=== PATIENT | female | born 1980 | race Caucasian/White ===

== ENCOUNTER 2018-11-02 17:41 | Emergency (ER) | payer OTHER ==
[~2018-11-02] VITALS: Ht 165.1 cm; Wt 117.5 kg
[2018-11-02] MEDS ORDERED: PROZ10CA7 PO (17:56)
[2018-11-02] MEDS ORDERED: KETOROLAC 60 MG/2 ML VIAL (J1885) IM ONE (18:00)
[2018-11-02] MEDS ORDERED: CYCLOBENZAPRINE 10 MG TAB PO ONE (18:00)
--- NOTE | 2018-11-02 18:11 | REPVR ---
PROCEDURE INFORMATION: Exam: CT Head Without Contrast Exam date and time: 11/02/2018 6:00 PM Clinical history: 38 years old, female; Injury or trauma; Fall; Initial encounter; Blunt trauma (contusions or hematomas) TECHNIQUE: Imaging protocol: Computed tomography of the head without contrast. Radiation optimization: All CT scans at this facility use at least one of these dose optimization techniques: automated exposure control; mA and/or kV adjustment per patient size (includes targeted exams where dose is matched to clinical indication); or iterative reconstruction. COMPARISON: No relevant prior studies available. FINDINGS: Brain: Normal. No hemorrhage. Unremarkable white matter. No mass effect. Ventricles: Normal. No ventriculomegaly. Bones/joints: Unremarkable. No acute fracture. Sinuses: Visualized sinuses are unremarkable. No fluid levels. Mastoid air cells: Visualized mastoid air cells are well aerated. Soft tissues: Unremarkable. IMPRESSION: No acute intracranial abnormality. Electronically signed by: Martir Lopez On 11/02/2018 18:11:07 PM
[2018-11-02] MEDS ORDERED: PERCOCET 5MG/325MG TAB PO ONE (19:15)
--- NOTE | 2018-11-02 19:24 | REP ---
THORACIC SPINE, AP AND LATERAL: AP and lateral views of thoracic spine performed. No compression fracture is seen. There is normal thoracic kyphosis and alignment. Disc spaces are relatively well preserved. Posterior elements appear intact. There is slight curvature toward the right. IMPRESSION: No evidence of fracture or dislocation. Electronically Signed by Guzman Krishnamurthy MD 11/03/2018 09:03 A
--- NOTE | 2018-11-02 19:37 | REPVR ---
PROCEDURE INFORMATION: Exam: CT Right Lower Extremity Without Contrast, Hip Exam date and time: 11/02/2018 7:19 PM Clinical history: 38 years old, female; Injury or trauma; Fall; Initial encounter; Blunt trauma; Hip; Right TECHNIQUE: Imaging protocol: CT of the Right lower extremity without contrast was performed. Exam focused on the hip. Radiation optimization: All CT scans at this facility use at least one of these dose optimization techniques: automated exposure control; mA and/or kV adjustment per patient size (includes targeted exams where dose is matched to clinical indication); or iterative reconstruction. COMPARISON: No relevant prior studies available. FINDINGS: Bones/joints: Normal. No acute fracture or dislocation. Soft tissues: Normal. IMPRESSION: Unremarkable CT. Electronically signed by: Martir Lopez On 11/02/2018 19:37:18 PM
--- NOTE | 2018-11-02 19:54 | REP ---
LUMBOSACRAL SPINE, FIVE VIEWS: Five views of the lumbosacral spine were performed. There is no compression fracture or malalignment. There is normal lumbar lordosis. Posterior fusion rods and pedicle screws are seen bridging L4 and L5 with a disc spacer. No spondylolisthesis is seen. Posterior elements appear intact. There is mild lateral spurring of L4. IMPRESSION: No acute fracture or dislocation. Electronically Signed by Guzman Krishnamurthy MD 11/03/2018 09:03 A
--- NOTE | 2018-11-02 19:54 | REP ---
PELVIS AND RIGHT HIP: AP view of the pelvis and AP and frogleg views of the right hip are performed and demonstrate no fracture, dislocation or intrinsic bone disease. IMPRESSION: No fracture or dislocation. Electronically Signed by Guzman Krishnamurthy MD 11/03/2018 09:03 A
[2018-11-02 20:17] VITALS: BP 101/60
[2018-11-02] MEDS ORDERED: NAPR-837 PO (20:47)
== END 2018-11-02 20:57 | disposition home or self-care (01) ==
LOC: EDBD 17:41 → M ED 17:41
DX: S70.01XA Contusion of right hip, initial encounter (principal); S30.0XXA Contusion of lower back and pelvis, initial encounter; W10.8XXA Fall (on) (from) other stairs and steps, initial encounter; Y92.098 Other place in other non-institutional residence as the place of occurrence of the external cause; F41.9 Anxiety disorder, unspecified; F32.9 Major depressive disorder, single episode, unspecified; M54.9 Dorsalgia, unspecified; Z88.1 Allergy status to other antibiotic agents; Z79.899 Other long term (current) drug therapy
CPT/HCPCS: 70450; 72072; 72110; 73502; 73700; 96372; 99284; J1885

== ENCOUNTER → 2019-03-12 | Outpatient (REF) | payer OTHER ==
[~2019-03-12] MED LIST: NAPR-837 PO; PROZ10CA7 PO
== END ==
LOC: M SFHCLERA 18:00
PROVIDERS: ATTEND Nurse Practitioner Family
DX: R30.0 Dysuria (principal)
CPT/HCPCS: 81002; 81025; 87088; 87186; G0463

== ENCOUNTER 2019-06-07 21:42 | Inpatient (IN) | payer OTHER ==
[~2019-06-07] VITALS: Ht 165.1 cm; Wt 111.2 kg
[2019-06-07] MEDS ORDERED: ONDANSETRON 4MG/2ML VIAL IV ONE (22:00)
[2019-06-07] MEDS ORDERED: NS 1,000 ML IV ONE ×2 (22:00→23:45)
[2019-06-07] MEDS ORDERED: KETOROLAC 30 MG/ML 1ML VIAL IV ONE (22:15)
[2019-06-07] MEDS ORDERED: ISOVUE-370 76% 100ML VIAL As Ordered ONE ×2 (22:33→22:34)
[2019-06-07 22:45] LABS: BASO # 0.1 10^3/uL (0.0-0.2); BASO % 0.4 % (0.0-1.0); EOS # 0.1 10^3/uL (0.0-0.5); EOS % 0.5 % (0.0-3.0); HEMATOCRIT 37.8 % (36.0-47.0); HEMOGLOBIN 12.3 g/dl (12.0-15.5); LYMPH # 1.5 10^3/uL (1.5-5.0); LYMPH % 10.7 % (24.0-44.0); MEAN CORPUSCULAR HEMOGLOBIN 30.3 pg (27.0-33.0); MEAN CORPUSCULAR HGB CONC 32.5 g/dl (32.0-36.5); MEAN CORPUSCULAR VOLUME 93.1 fl (80.0-96.0); MONO # 0.7 10^3/uL (0.0-0.8); MONO % 5.1 % (0.0-5.0); NEUTROPHILS # 11.6 10^3/uL (1.5-8.5); NEUTROPHILS % 82.7 % (36.0-66.0); PLATELET COUNT, AUTOMATED 316 10^3/uL (150-450); RED BLOOD COUNT 4.06 10^6/uL (4.00-5.40)
[2019-06-07 22:55] LABS: ALBUMIN 3.5 GM/DL (3.2-5.2); ALT/SGPT 23 U/L (12-78); BILIRUBIN,DIRECT < 0.1 MG/DL (0.0-0.2); BILIRUBIN,TOTAL 0.7 MG/DL (0.2-1.0); LIPASE 75 U/L (73-393); TOTAL PROTEIN 8.3 GM/DL (6.4-8.2)
--- NOTE | 2019-06-07 23:10 | REPVR ---
PROCEDURE INFORMATION: Exam: CT Abdomen And Pelvis With Contrast Exam date and time: 06/07/2019 10:57 PM Age: 38 years old Clinical indication: Abdominal pain; Generalized; Additional info: Abd pain, no tolerate po, diarrhea TECHNIQUE: Imaging protocol: Computed tomography of the abdomen and pelvis with intravenous contrast. Radiation optimization: All CT scans at this facility use at least one of these dose optimization techniques: automated exposure control; mA and/or kV adjustment per patient size (includes targeted exams where dose is matched to clinical indication); or iterative reconstruction. Contrast material: ISOVUE 370; Contrast volume: 100 ml; Contrast route: IV; COMPARISON: CR Hip,AP,LAT to include Pelvis 11/02/2018 6:08 PM FINDINGS: Liver: Unremarkable. Gallbladder and bile ducts: Unremarkable. No ductal dilation. Pancreas: Unremarkable. No ductal dilation. Spleen: Unremarkable. Adrenals: Unremarkable. Kidneys and ureters: No hydronephrosis or stones. Stomach and bowel: The colon is decompressed, limiting evaluation for wall thickening. Possible wall thickening in the sigmoid colon. No modesto-colonic fat stranding. Small bowel loops are unremarkable. Appendix: The appendix is normal. Intraperitoneal space: No pneumoperitoneum. No significant fluid collection. Vasculature: Unremarkable. Lymph nodes: No enlarged lymph nodes. Bladder: Unremarkable. Reproductive: Unremarkable as visualized. Bones/joints: Chronic posterior fusion changes at L5-S1. No acute fracture. Soft tissues: Unremarkable. IMPRESSION: Possible wall thickening in the sigmoid colon, though overall evaluation of colon is limited due to lack of oral contrast. Mild colitis cannot be excluded. Electronically signed by: Benjamin Lawrence On 06/07/2019 23:10:08 PM
[2019-06-07] MEDS ORDERED: PROMETHAZINE 25 MG TAB PO ONE (23:45)
[2019-06-08] MEDS ORDERED: METOCLOPRAMIDE INJ 10MG/2ML VIAL (J2765 PER 1) IV ONE (00:15)
[2019-06-08] MEDS ORDERED: DICYCLOMINE 10 MG CAP PO ONE (00:15)
[2019-06-08] MEDS ORDERED: MORPHINE 4 MG/ML 1ML VIAL/SYRINGE (J2270) IV ONE (01:30)
--- NOTE | 2019-06-08 02:14 | HPEPDOC ---
[facility] Medical History & Physical Date of Admission Jun 08, 2019 Date of Service: Jun 08, 2019 Attending Physician: JARRED EMERSON MD History and Physical Time of Service 240AM CHIEF COMPLAINT: Abdominal pain HISTORY OF PRESENT ILLNESS: This is a 38 yr old F who presented to the ER on Wednesday w c/o of cramping non-radiating 8/10 generalized abdominal pain; over the last few days the pain improved but yesterday it became worse so she returned. She also has non-bloody vomitus whenever she tries to eat, and diarrhea. She is not sure if the diarrhea was bloody. After receiving meds in the ER the pain improved to 6/10. She denies having fevers but had chills on Wednesday. ROS: 12 point ROS negative except as listed in HPI PAST MEDICAL/SURGICAL HISTORY: Anxiety Depression DDD Class 3 Obesity SOCIAL HISTORY: -Tobacco / Her left her 24 days ago FAMILY HISTORY: reviewed she denies having a family hx of medical problems ALLERGIES: ciprofloxacin HOME MEDICATIONS: Please see below. PHYSICAL EXAMINATION: Vital Signs Date Time Temp Pulse Resp B/P (MAP) Pulse Ox O2 Delivery O2 Flow Rate FiO2 06/07/19 22:05 99.3 58 20 197/97 (130) 97 Room Air GENERAL APPEARANCE: anxious HEENT: NCAT INTEGUMENT: not flushed / not jaundice CARDIOVASCULAR: RRR/NMRG LUNGS: CTAB on RA ABDOMEN: soft & no grimacing w palpation EXTREMITIES: CARLEEN x 4 NEUROLOGICAL: CN 2-12 grossly intact / speech not dysarthric PSYCHIATRIC:A&O x 3/ labile emotions (teary during parts of the exam) LABORATORY DATA: 06/07/19 21:59 Immature Granulocyte % (Auto) 0.6, Neutrophils (%) (Auto) 82.7H, Lymphocytes (%) (Auto) 10.7L, Monocytes (%) (Auto) 5.1H, Eosinophils (%) (Auto) 0.5, Basophils (%) (Auto) 0.4, Neutrophils # (Auto) 11.6H, Lymphocytes # (Auto) 1.5, Monocytes # (Auto) 0.7, Eosinophils # (Auto) 0.1, Basophils # (Auto) 0.1, Nucleated Red Blood Cells % (auto) 0.0, Urine Color YELLOW, Urine Appearance CLEAR, Urine pH 8.0, Urine Specific [place] 1.057, Urine Protein NEGATIVE, Urine Glucose (UA) NEGATIVE, Urine Ketones NEGATIVE, Urine Blood 2+H, Urine Nitrite NEGATIVE, Urine Bilirubin NEGATIVE, Urine Urobilinogen 0.2, Urine Leukocyte Esterase NEGATIVE, Urine WBC (Auto) 1, Urine RBC (Auto) 17H, Urine Hyaline Casts (Auto) 0, Urine Bacteria (Auto) 1+H, Urine Squamous Epithelial Cells 1, Urine Sperm (Auto) , Lactic Acid Level 3.0*H, Total Bilirubin 0.7, Direct Bilirubin < 0.1, Aspartate Amino Transf (AST/SGOT) 38H, Alanine Aminotransferase (ALT/SGPT) 23, Alkaline Phosphatase 69, Total Protein 8.3H, Albumin 3.5, Albumin/Globulin Ratio 0.73L, Lipase 75 POC Beta HCG, Quantitative < 5.0 POC Glucose (Misc Panel) 116H, POC Sodium (Misc Panel) 141, POC Potassium (Misc Panel) 3.9, POC Chloride (Misc Panel) 106, POC Total CO2 (Misc Panel) 24.0, POC Blood Urea Nitrogen (Misc Panel 9, POC Ionized Calcium (Misc Panel) 4.1L, POC Creatinine (Misc Panel) 0.8, POC Hematocrit (Misc Panel) 38.0 IMAGING: CT of the abdomen and pelvis "IMPRESSION: Possible wall thickening in the sigmoid colon, though overall evaluation of colon is limited due to lack of oral contrast. Mild colitis cannot be excluded. " ASSESSMENT: is a 38 yr old w a hx of Anxiety/Depression, DDD & Class 3 obesity who is admitted for evaluation of SIRS/Sepsis possibly 2/2 gastroenteritis. PLAN: 1. SIRS/Sepsis SIRS criteria include WBC #>12 and RR >/=20 Lactic acid was 3 She received some IVF in the ER QSofa Score = 1 = not high risk Plan: admit to medical floor / initiate sepsis protocol w IV meropenum and vanc per sepsis order set / f/u VGB / switch IVF to LR / target MAP >65 / target UOP >30ml/kg/H / target serum glucose 140-180 2. N/V abdominal pain and diarrhea possibly 2/[address] shows possible colitis Plan: IV abx / zofran for n/v/ IV Ofrimev and Toradol for pain / f/u GI panel ordered in ER 3. Anxiety/Depression - resume home meds / the day time team can consider up- titrating the dose of escitalopram and consulting PFS to provide pt w local support services additional support 4. Class 3 Obesity which complicates care - f/u A1C / she can f/u w her PCP for sleep apnea screening and referral to a tube cutter operator and Bariatric surgeon DVT Px w SCDs (Sania prediction score =1 = pharmacological px not indicated) DISPO: home after 2 midnight's stay Home Medications Scheduled Bupropion HCl (Wellbutrin Sr) 100 Mg Tab.sr.12h, 100 MG PO BID Escitalopram Oxalate (Lexapro) 20 Mg Tablet, 20 MG PO DAILY Scheduled PRN Ondansetron HCl (Zofran) 4 Mg Tablet, 4 MG PO Q6H PRN for NAUSEA OR VOMITING Tizanidine HCl (Tizanidine HCl) 4 Mg Tablet, 4 MG PO QID PRN for MUSCLE SPASMS Allergies Coded Allergies: ciprofloxacin (Verified Allergy, Intermediate, Swelling/rash, 11/02/18) A-FIB/CHADSVASC A-FIB History Current/History of A-Fib/PAF?: No Current PO Anticoag Therapy: No JARRED EMERSON MD Jun 08, 2019 02:14
[2019-06-08] MEDS ORDERED: ACETAMINOPHEN *IV* 1,000 MG in IV 1 EA IV ONE (02:15)
[2019-06-08] MEDS ORDERED: LR 1,000 ML IV SCH (02:15)
[2019-06-08] MEDS ORDERED: ZOFR4TAB16 PO ×2 (02:17→09:51)
[2019-06-08] MEDS ORDERED: LEXA1TAB2 PO (02:17)
[2019-06-08] MEDS ORDERED: TIZA4TAB4 PO (02:17)
[2019-06-08] MEDS ORDERED: WELL100T2 PO (02:17)
[2019-06-08] MEDS ORDERED: MEROPENEM INJ 1 GM in IV 1 EA IV SCH (03:00)
[2019-06-08 03:08] LABS: BASO % 0.2 % (0.0-1.0); HEMATOCRIT 36.7 % (36.0-47.0); HEMOGLOBIN 11.9 g/dl (12.0-15.5); LYMPH # 0.9 10^3/uL (1.5-5.0); LYMPH % 6.9 % (24.0-44.0); MEAN CORPUSCULAR HEMOGLOBIN 30.4 pg (27.0-33.0); MEAN CORPUSCULAR HGB CONC 32.4 g/dl (32.0-36.5); MEAN CORPUSCULAR VOLUME 93.6 fl (80.0-96.0); MONO # 0.3 10^3/uL (0.0-0.8); NEUTROPHILS # 11.6 10^3/uL (1.5-8.5); NEUTROPHILS % 90.4 % (36.0-66.0); PLATELET COUNT, AUTOMATED 283 10^3/uL (150-450); RED BLOOD COUNT 3.92 10^6/uL (4.00-5.40); WHITE BLOOD COUNT 12.8 10^3/uL (4.0-10.0)
[2019-06-08 03:12] LABS: VENOUS BASE EXCESS -0.8 (-2.0-2.0); VENOUS HCO3 22.2 MEQ/L (23.0-27.0); VENOUS O2 SATURATION 97.9 % (60.0-80.0); VENOUS PARTIAL PRESSURE CO2 31.7 mmHg (38.0-50.0); VENOUS PARTIAL PRESSURE O2 99.1 mmHg (30.0-50.0); VENOUS PH 7.464 UNITS (7.330-7.430); VENOUS STANDARD HCO3 23.9 MEQ/L; VENOUS TOTAL CO2 23.2 MEQ/L (24.0-28.0)
[2019-06-08] MEDS ORDERED: RAMELTEON 8 MG TAB (ROZEREM) PO SCH (03:15)
[2019-06-08 03:24] VITALS: BP 134/88
[2019-06-08 03:34] LABS: BLOOD UREA NITROGEN 8 MG/DL (7-18); CALCIUM LEVEL 8.7 MG/DL (8.5-10.1); CARBON DIOXIDE LEVEL 23 MEQ/L (21-32); CHLORIDE LEVEL 107 MEQ/L (98-107); CREATININE FOR GFR 0.93 MG/DL (0.55-1.30); GLOMERULAR FILTRATION RATE > 60.0 (>60); GLUCOSE, FASTING 117 MG/DL (70-100); POTASSIUM SERUM 3.6 MEQ/L (3.5-5.1); SODIUM LEVEL 139 MEQ/L (136-145)
[2019-06-08] MEDS ORDERED: VANCOMYCIN HCL 1,000 MG, VIAL MATE ADAPTER 1 EACH in D5W 250 ML IV ONE ×2 (05:00→06:00)
[2019-06-08] MEDS: ONDANSETRON 4MG/2ML VIAL IV SCH ×2 (05:19→11:00)
[2019-06-08 06:00] VITALS: BP 106/54
--- NOTE | 2019-06-08 06:32 | PHACANCOPD ---
PHARMACY VANCOMYCIN DOSING Pt Demographics Demographics Patient Age:38 , Weight:111.200 , Gender: female Adjusted Body Weight Date: 06/08/19, Adjusted Body Weight: [79.7] Kg Vancomycin Vancomycin indication: SEPSIS(GI SOURCE) Vancomycin Target Ranges: 15-20 mcg/ml Vancomycin Load Y/N: Yes Load Dose Date Time Vancomycin Load Dose: 2GM Date: 06/07 Time: 5-6:00 Vancomycin Dose Date: 06/08/19. Current Vancomycin Dose: [1GM Q8H] Intermittent Dosing?: No Labs Micro Microbiology 06/08/19 Blood Culture, Received Pending 06/08/19 Blood Culture, Received Pending Creatinine Clearance Date:06/08/19. Creatinine Clearance: [>100]. Assessment and Plan Maintaining Current Dose?: Yes Reason for dose change: No Dose Change Pharmacist Note Pharmacist Note Date: 06/08/19. Pharmacist note:38 YOF Admitted w/sepsis(possible GI source)ht:65",wt:113.64kg(abw=79.7kg),SCR;0.8,CRCL:>100, MRSA PCR pending,allergy:ciprofloxacin. ABX regimen includes Meropenem 1 gm IV Q8H and Pharmacy dosed Vancomycin(trough goal=15-20). Vancomycin 2 gram load 05-6:00, then will begin 1 gram IV [id number] to begin @16:00. First trough is scheduled for 06/08 @0700( prior to the 4th dose. Will continue to follow. LOLI RODRIGUEZ PHARMACY Jun 08, 2019 06:32
[2019-06-08] MEDS ORDERED: KETOROLAC 30 MG/ML 1ML VIAL IV SCH (07:00)
[2019-06-08] MEDS ORDERED: ESCITALOPRAM OXALATE 10 MG TAB (LEXAPRO) PO SCH (09:00)
[2019-06-08] MEDS ORDERED: buPROPion (WELLBUTRIN SR) 100 MG SR TAB PO SCH (09:00)
[2019-06-08 14:00] VITALS: BP 124/66
[2019-06-08] MEDS ORDERED: VANCOMYCIN HCL 1,000 MG, VIAL MATE ADAPTER 1 EACH in D5W 250 ML IV SCH (16:00)
--- NOTE | 2019-06-08 18:47 | DS.PDOC ---
Discharge Summary General Date of Admission Jun 08, 2019 at 02:07 Date of Discharge 06/08/2019 Attending Physician: RANDEE OLMSTEAD MD Discharge Summary PROCEDURES PERFORMED DURING STAY: None. PCP: Amie Ramos ADMITTING/DISCHARGE DIAGNOSES: Possible viral gastroenteritis Sirs positive Anxiety/depression COMPLICATIONS/CHIEF COMPLAINT: Abdominal pain, nausea, vomiting HISTORY OF PRESENT ILLNESS/HOSPITAL COURSE: 38-year-old female presents to the emergency room on 06/03 complaining of cramping, nonradiating generalized abdominal pain. She was discharged, but her and her pain improved but on 06/06 were symptoms returned and had worsen. She had episodes of emesis and diarrhea. She had episodes of emesis and diarrhea with her abdominal pain that improved with pain medication. She was admitted, started on empiric antibiotics, and given a 30 mL/kg bolus. The following morning she was evaluated and reported that she was feeling better after being hydrated as she was unable to hold down any food before. Her symptoms seemed more consistent with a viral gastroenteritis, so her antibiotics were discontinued. After discussion with the patient she felt comfortable with being discharged the following day and was advised to advance her diet slowly. DISCHARGE MEDICATIONS: Please see below. ALLERGIES: Please see below. Vitals: (see below) General: No acute distress, laying comfortably in bed. HEENT: Normocephalic, atraumatic. EOMI. No scleral icterus. Moist mucous mem branes. No pharyngeal erythema or uvular deviation. Neck: No JVD, lymphadenopathy, or thyromegaly. Cardiac: RRR, Normal S1 and S2, No murmurs, gallops, rubs. Pulm: Clear to auscultation b/l. Symmetric thorax. No wheezing, crackles, rhonchi Abd: Bowel Sounds present. Obese abdomen, abdomen is soft, mildly tender to palpation in right upper quadrant, non-distended. No guarding, rebound tenderness, or rigidity. No hepatosplenomegaly. No masses or eccymosis. Ext: No edema or cyanosis Skin: No skin changes Neuro: No focal neuro deficits Psych: Appropriate affect LABORATORY DATA: Please see below. IMAGIN06/07/2019 CT abdomen and pelvis: Possible wall thickening in the sigmoid colon, though overall evaluation of colon is limited due to lack of oral contrast. Mild colitis cannot be excluded. PROGNOSIS: stable ACTIVITY: As tolerated. DIET: As tolerated DISCHARGE PLAN: Home DISCHARGE INSTRUCTIONS: 1. Please return to hospital symptoms worsen. DISCHARGE CONDITION: Stable. TIME SPENT ON DISCHARGE: 35 minutes Vital Signs/I&Os Vital Signs Date Time Temp Pulse Resp B/P (MAP) Pulse Ox O2 Delivery O2 Flow Rate FiO2 06/08/19 14:00 97.4 75 18 124/66 (85) 97 Room Air I&O- Last 24 Hours up to 6 AM 06/08/19 06:00 Intake Total 2000 ml Output Total 100 ml Balance 1900 ml Laboratory Data Labs 24H Laboratory Tests 2 06/07/19 21:59: Immature Granulocyte % (Auto) 0.6, Neutrophils (%) (Auto) 82.7H, Lymphocytes (%) (Auto) 10.7L, Monocytes (%) (Auto) 5.1H, Eosinophils (%) (Auto) 0.5, Basophils (%) (Auto) 0.4, Neutrophils # (Auto) 11.6H, Lymphocytes # (Auto) 1.5, Monocytes # (Auto) 0.7, Eosinophils # (Auto) 0.1, Basophils # (Auto) 0.1, Nucleated Red Blood Cells % (auto) 0.0, Urine Color YELLOW, Urine Appearance CLEAR, Urine pH 8.0, Urine Specific [place] 1.057, Urine Protein NEGATIVE, Urine Glucose (UA) NEGATIVE, Urine Ketones NEGATIVE, Urine Blood 2+H, Urine Nitrite NEGATIVE, Urine Bilirubin NEGATIVE, Urine Urobilinogen 0.2, Urine Leukocyte Esterase NEGATIVE, Urine WBC (Auto) 1, Urine RBC (Auto) 17H, Urine Hyaline Casts (Auto) 0, Urine Bacteria (Auto) 1+H, Urine Squamous Epithelial Cells 1, Urine Sperm (Auto) , Lactic Acid Level 3.0*H, Total Bilirubin 0.7, Direct Bilirubin < 0.1, Aspartate Amino Transf (AST/SGOT) 38H, Alanine Aminotransferase (ALT/SGPT) 23, Alkaline Phosphatase 69, Total Protein 8.3H, Albumin 3.5, Albumin/Globulin Ratio 0.73L, Lipase 75 06/07/19 22:20: POC Beta HCG, Quantitative < 5.0 06/07/19 22:21: POC Glucose (Misc Panel) 116H, POC Sodium (Misc Panel) 141, POC Potassium (Misc Panel) 3.9, POC Chloride (Misc Panel) 106, POC Total CO2 (Misc Panel) 24.0, POC Blood Urea Nitrogen (Misc Panel 9, POC Ionized Calcium (Misc Panel) 4.1L, POC Creatinine (Misc Panel) 0.8, POC Hematocrit (Misc Panel) 38.0 06/08/19 02:58: Immature Granulocyte % (Auto) 0.5, Neutrophils (%) (Auto) 90.4H, Lymphocytes (%) (Auto) 6.9L, Monocytes (%) (Auto) 2.0, Eosinophils (%) (Auto) 0.0, Basophils (%) (Auto) 0.2, Neutrophils # (Auto) 11.6H, Lymphocytes # (Auto) 0.9L, Monocytes # (Auto) 0.3, Eosinophils # (Auto) 0.0, Basophils # (Auto) 0.0, Nucleated Red Blood Cells % (auto) 0.0, Blood Gas Bicarbonate Standard 23.9, Venous Blood pH 7.464H, Venous Blood Partial Pressure CO2 31.7L, Venous Blood Partial Pressure O2 99.1H, Venous Blood Total Carbon Dioxide 23.2L, Venous Blood HCO3 22.2L, Venous Blood Oxygen Saturation 97.9H, Venous Blood Base Excess -0.8 06/08/19 02:59: Estimated Mean Plasma Glucose 126H, Hemoglobin A1c 6.0, Lactic Acid Level 2.0 06/08/19 03:01: Anion Gap 9, Glomerular Filtration Rate > 60.0, Calcium Level 8.7 06/08/19 03:44: Bedside Glucose (Misc Panel) 130H 06/08/19 05:39: Bedside Glucose (Misc Panel) 105 06/08/19 11:44: Bedside Glucose (Misc Panel) 86 CBC/BMP Laboratory Tests 06/07/19 21:59 06/08/19 02:58 06/08/19 03:01 FSBS Laboratory Tests Test 06/08/19 03:44 06/08/19 05:39 06/08/19 11:44 Range/Units Bedside Glucose (Misc Panel) 130 105 86 70-105 MG/DL Microbiology Microbiology 06/08/19 Blood Culture, Received Pending 06/08/19 Blood Culture, Received Pending Discharge Medications Scheduled Bupropion HCl (Wellbutrin Sr) 100 Mg Tab.sr.12h, 100 MG PO BID, (Reported) Escitalopram Oxalate (Lexapro) 20 Mg Tablet, 20 MG PO DAILY, (Reported) Scheduled PRN Ondansetron HCl (Zofran) 4 Mg Tablet, 4 MG PO Q6H PRN for NAUSEA OR VOMITING Please take 1 tablet as needed every 6 hours for nausea or vomiting. Tizanidine HCl (Tizanidine HCl) 4 Mg Tablet, 4 MG PO QID PRN for MUSCLE SPASMS, (Reported) Allergies Coded Allergies: ciprofloxacin (Verified Allergy, Intermediate, Swelling/rash, 11/02/18) GME ATTESTATION GME ATTESTATION My faculty preceptor for this patient encounter was physically present during the encounter and was fully available. All aspects of the patient interview, examination, medical decision making process, and medical care plan development were reviewed and approved by the faculty preceptor. The faculty preceptor is aware and concurs with the plan as stated in the body of this note and will attest to such by his/her cosignature. ARGENIS AGUILAR DO Jun 08, 2019 18:47
== END 2019-06-08 16:43 | disposition home or self-care (01) | DRG 392 ==
LOC: M ED 21:42 → M ED INP 06-08 02:07 → ENRESERV 06-08 02:31 → M MSPAV 06-08 03:23
PROVIDERS: ADMIT Internal Medicine; ATTEND Internal Medicine
DX: A08.4 Viral intestinal infection, unspecified (principal); R65.10 Systemic inflammatory response syndrome (SIRS) of non-infectious origin without acute organ dysfunction; Z68.41 Body mass index [BMI] 40.0-44.9, adult; F41.9 Anxiety disorder, unspecified; F32.9 Major depressive disorder, single episode, unspecified; E66.9 Obesity, unspecified; Z88.1 Allergy status to other antibiotic agents; Z79.899 Other long term (current) drug therapy

== ENCOUNTER 2019-06-10 17:49 | Emergency (ER) | payer OTHER ==
[~2019-06-10] VITALS: Ht 165.1 cm; Wt 113.6 kg
[~2019-06-10 17:49] MED LIST changes: +ACETAMINOPHEN 120 MG SUPP As Ordered ONE; +LEXA1TAB2 PO; +TIZA4TAB4 PO; +WELL100T2 PO; +ZOFR4TAB16 PO
[2019-06-10] MEDS ORDERED: OMEP-221 OR (18:02)
[2019-06-10] MEDS ORDERED: NS 1,000 ML IV ONE (18:30)
[2019-06-10] MEDS ORDERED: METOCLOPRAMIDE INJ 10MG/2ML VIAL (J2765 PER 1) IV ONE (18:30)
[2019-06-10 20:00] LABS: BASO # 0.1 10^3/uL (0.0-0.2); BASO % 0.4 % (0.0-1.0); EOS % 0.1 % (0.0-3.0); HEMATOCRIT 39.3 % (36.0-47.0); HEMOGLOBIN 12.9 g/dl (12.0-15.5); LYMPH # 1.1 10^3/uL (1.5-5.0); LYMPH % 8.8 % (24.0-44.0); MEAN CORPUSCULAR HEMOGLOBIN 30.1 pg (27.0-33.0); MEAN CORPUSCULAR HGB CONC 32.8 g/dl (32.0-36.5); MEAN CORPUSCULAR VOLUME 91.8 fl (80.0-96.0); MONO # 0.5 10^3/uL (0.0-0.8); MONO % 3.6 % (0.0-5.0); NEUTROPHILS # 10.8 10^3/uL (1.5-8.5); NEUTROPHILS % 86.9 % (36.0-66.0); PLATELET COUNT, AUTOMATED 346 10^3/uL (150-450); RED BLOOD COUNT 4.28 10^6/uL (4.00-5.40); WHITE BLOOD COUNT 12.4 10^3/uL (4.0-10.0)
[2019-06-10] MEDS: GASTROGRAFIN SOLUTION 30ML PO SCH ×3 (20:00→23:09)
[2019-06-10] MEDS ORDERED: HALOPERIDOL 5MG/ML VIAL (J1630 PER 1) IV ONE (20:15)
[2019-06-10] MEDS ORDERED: ISOVUE-370 76% 100ML VIAL As Ordered ONE (20:29)
[2019-06-10 20:32] LABS: ALBUMIN 3.9 GM/DL (3.2-5.2); BILIRUBIN,DIRECT 0.1 MG/DL (0.0-0.2); BILIRUBIN,TOTAL 0.8 MG/DL (0.2-1.0); TOTAL PROTEIN 8.5 GM/DL (6.4-8.2)
[2019-06-10] MEDS ORDERED: diphenhydrAMINE 50MG/ML VIAL (J1200) IV ONE (20:45)
[2019-06-10] MEDS ORDERED: CAPSAICIN 0.025% CR 60 GM TOP ONE (20:45)
--- NOTE | 2019-06-11 00:13 | REPVR ---
PROCEDURE INFORMATION: Exam: CT Abdomen And Pelvis With Contrast Exam date and time: 06/10/2019 11:58 PM Age: 38 years old Clinical indication: Abdominal pain; Additional info: Abd pain with n/v/d TECHNIQUE: Imaging protocol: Computed tomography of the abdomen and pelvis with intravenous contrast. Radiation optimization: All CT scans at this facility use at least one of these dose optimization techniques: automated exposure control; mA and/or kV adjustment per patient size (includes targeted exams where dose is matched to clinical indication); or iterative reconstruction. Contrast material: ISO 370; Contrast volume: 100 ml; Contrast route: IV; COMPARISON: CT ABD/PEL W/IV CONTRAST ONLY 06/07/2019 10:44 PM FINDINGS: Lungs: Linear atelectasis or scarring in the right middle lobe. Liver: Mild hepatomegaly . Gallbladder and bile ducts: Normal. No calcified stones. No ductal dilation. Pancreas: Normal. No ductal dilation. Spleen: Normal. No splenomegaly. Adrenals: Normal. No mass. Kidneys and ureters: Normal. No hydronephrosis. Stomach and bowel: Bowel wall thickening involving multiple loops of small and large bowel likely reflect under distension. Appendix: No evidence of appendicitis. Intraperitoneal space: Unremarkable. No free air. No significant fluid collection. Vasculature: Unremarkable. No abdominal aortic aneurysm. Lymph nodes: Unremarkable. No enlarged lymph nodes. Bladder: Unremarkable as visualized. Reproductive: Unremarkable as visualized. Bones/joints: Status post L5-S1 fusion. Bilateral transpedicular screws are noted at this level. Soft tissues: Fat containing umbilical hernia. IMPRESSION: No bowel obstruction. Normal appendix. No hydronephrosis or nephrolithiasis bilaterally. Mild hepatomegaly. Electronically signed by: Pineda Almanza On 06/11/2019 00:13:14 AM
[2019-06-11] MEDS ORDERED: PROMETHAZINE 25 MG SUPP PR ONE (01:00)
[2019-06-11] MEDS ORDERED: PROM25SU PR (01:07)
[2019-06-11 01:27] VITALS: BP 144/66
[2019-06-11 01:43] LABS: AMPHETAMINES LEVEL URINE NEGATIVE (NEGATIVE); BARBITURATES URINE NEGATIVE (NEGATIVE); BENZODIAZEPINES URINE NEGATIVE (NEGATIVE); CANNABINOIDS URINE POSITIVE (NEGATIVE); COCAINE METABOLITE URINE NEGATIVE (NEGATIVE); METHADONE URINE NEGATIVE (NEGATIVE); OPIATES URINE NEGATIVE (NEGATIVE); PHENCYCLIDINE URINE NEGATIVE (NEGATIVE)
[2019-06-11] MEDS ORDERED: MACR100C43 PO (02:22)
== END 2019-06-11 01:31 | disposition home or self-care (01) ==
LOC: EDBD 17:49 → M ED 17:49
DX: R11.2 Nausea with vomiting, unspecified (principal); R19.7 Diarrhea, unspecified; N39.0 Urinary tract infection, site not specified; R16.2 Hepatomegaly with splenomegaly, not elsewhere classified; F12.10 Cannabis abuse, uncomplicated; Z88.1 Allergy status to other antibiotic agents; Z79.899 Other long term (current) drug therapy
CPT/HCPCS: 74177; 80047; 80076; 80307; 83690; 84702; 85025; 87088; 87186; 96361; 96374; 96375; 99284; J1200; J1630; J2765; Q9963; Q9967

== ENCOUNTER → 2019-07-06 | Outpatient (REF) | payer OTHER ==
[~2019-07-06] MED LIST changes: -ACETAMINOPHEN 120 MG SUPP As Ordered ONE; +LEXA1TAB PO; +MACR100C43 PO; +OMEP-221 OR; +PROM25SU PR
[2019-07-07 15:08] LABS: CHLAMYDIA DNA AMPLIFICATION NEGATIVE (NEGATIVE); GC DNA AMPLIFICATION NEGATIVE (NEGATIVE)
== END ==
LOC: M SFHCLERA 16:16
PROVIDERS: ATTEND Physician Assistant
DX: R30.9 Painful micturition, unspecified (principal)
CPT/HCPCS: 81002; 81025; 87088; 87186; 87661; G0463

== ENCOUNTER → 2019-07-31 | Outpatient (REF) | payer OTHER ==
[2019-08-01 15:36] LABS: CHLAMYDIA DNA AMPLIFICATION NEGATIVE (NEGATIVE); GC DNA AMPLIFICATION POSITIVE (NEGATIVE)
== END ==
LOC: M SFHCLERA 17:22
PROVIDERS: ATTEND Physician Assistant
DX: N89.8 Other specified noninflammatory disorders of vagina (principal)
CPT/HCPCS: 81002; 81025; 87070; 87088; 87186; 87661; 96372; G0463; J0696

== ENCOUNTER → 2019-09-22 | Outpatient (REF) | payer OTHER ==
[~2019-09-22] MED LIST changes: +SULF1TAB93 PO
[2019-11-07 14:00] LABS: CHLAMYDIA DNA AMPLIFICATION NEGATIVE (NEGATIVE); GC DNA AMPLIFICATION NEGATIVE (NEGATIVE)
== END ==
LOC: M LAB REF 07:32
PROVIDERS: ATTEND Physician Assistant
DX: N89.8 Other specified noninflammatory disorders of vagina (principal)
CPT/HCPCS: 81002; 81025; 87070; 87077; 87086; 87661; G0463

== ENCOUNTER → 2019-10-22 | Outpatient (REF) | payer OTHER ==
[2019-10-22 19:32] LABS: CHLAMYDIA DNA AMPLIFICATION NEGATIVE (NEGATIVE); GC DNA AMPLIFICATION NEGATIVE (NEGATIVE)
== END ==
LOC: M LAB REF 17:30
PROVIDERS: ATTEND Physician Assistant
DX: Z11.3 Encounter for screening for infections with a predominantly sexual mode of transmission (principal)

== ENCOUNTER 2019-11-04 12:06 | Emergency (ER) | payer OTHER ==
[~2019-11-04] VITALS: Ht 165.1 cm; Wt 102.7 kg
[~2019-11-04 12:06] MED LIST changes: -SULF1TAB93 PO
[2019-11-04] MEDS ORDERED: SULF1TAB93 PO (12:25)
[2019-11-04] MEDS ORDERED: HALOPERIDOL 5MG/ML VIAL (J1630 PER 1) IV ONE (13:00)
[2019-11-04] MEDS ORDERED: NS 1,000 ML IV ONE (13:00)
[2019-11-04 13:24] LABS: BASO % 0.3 % (0.0-1.0); EOS % 0.1 % (0.0-3.0); HEMATOCRIT 37.4 % (36.0-47.0); HEMOGLOBIN 12.6 g/dl (12.0-15.5); LYMPH # 1.4 10^3/uL (1.5-5.0); LYMPH % 14.2 % (24.0-44.0); MEAN CORPUSCULAR HEMOGLOBIN 30.7 pg (27.0-33.0); MEAN CORPUSCULAR HGB CONC 33.7 g/dl (32.0-36.5); MEAN CORPUSCULAR VOLUME 91.2 fl (80.0-96.0); MONO # 0.6 10^3/uL (0.0-0.8); NEUTROPHILS # 7.5 10^3/uL (1.5-8.5); PLATELET COUNT, AUTOMATED 331 10^3/uL (150-450); WHITE BLOOD COUNT 9.6 10^3/uL (4.0-10.0)
[2019-11-04 13:49] LABS: ALBUMIN 4.2 GM/DL (3.2-5.2); ALT/SGPT 19 U/L (12-78); BILIRUBIN,DIRECT 0.1 MG/DL (0.0-0.2); BILIRUBIN,TOTAL 0.6 MG/DL (0.2-1.0); CK-MB VALUE MASS < 1.0 NG/ML (<3.6); CPK CREATINE PHOSPHOKINASE 112 U/L (26-192); LIPASE 50 U/L (73-393); MB/CK RELATIVE INDEX 0.89 (< OR =4); TOTAL PROTEIN 8.7 GM/DL (6.4-8.2); TROPONIN I < 0.02 NG/ML (< 0.10)
[2019-11-04] MEDS ORDERED: DICYCLOMINE INJ 20MG/2ML (J0500) IM ONE (14:30)
[2019-11-04] MEDS ORDERED: PROMETHAZINE INJ 25 MG/ML VIAL (J2550) IV ONE (15:30)
[2019-11-04 15:34] LABS: BLOOD UREA NITROGEN 16 MG/DL (7-18); CALCIUM LEVEL 9.9 MG/DL (8.5-10.1); CARBON DIOXIDE LEVEL 19 MEQ/L (21-32); CHLORIDE LEVEL 106 MEQ/L (98-107); CREATININE FOR GFR 0.89 MG/DL (0.55-1.30); GLOMERULAR FILTRATION RATE > 60.0 (>58); GLUCOSE, FASTING 181 MG/DL (70-100); SODIUM LEVEL 135 MEQ/L (136-145)
[2019-11-04] MEDS ORDERED: ISOVUE-370 76% 100ML VIAL As Ordered ONE (16:12)
[2019-11-04 16:52] LABS: AMPHETAMINES LEVEL URINE NEGATIVE (NEGATIVE); BARBITURATES URINE NEGATIVE (NEGATIVE); BENZODIAZEPINES URINE NEGATIVE (NEGATIVE); CANNABINOIDS URINE POSITIVE (NEGATIVE); COCAINE METABOLITE URINE NEGATIVE (NEGATIVE); METHADONE URINE NEGATIVE (NEGATIVE); OPIATES URINE NEGATIVE (NEGATIVE); PHENCYCLIDINE URINE NEGATIVE (NEGATIVE)
--- NOTE | 2019-11-04 18:06 | REPVR ---
PROCEDURE INFORMATION: Exam: CT Abdomen And Pelvis With Contrast Exam date and time: 11/04/2019 4:39 PM Age: 39 years old Clinical indication: Abdominal pain; Localized; Lower; Additional info: Severe lower abd pain TECHNIQUE: Imaging protocol: Computed tomography of the abdomen and pelvis with intravenous contrast. Radiation optimization: All CT scans at this facility use at least one of these dose optimization techniques: automated exposure control; mA and/or kV adjustment per patient size (includes targeted exams where dose is matched to clinical indication); or iterative reconstruction. Contrast material: ISOVUE 370; Contrast volume: 100 ml; Contrast route: INTRAVENOUS (IV); COMPARISON: CT ABD/PEL W/IV ORAL CONTRAS 06/10/2019 11:51 PM FINDINGS: Liver: The liver is normal. Gallbladder and bile ducts: The gallbladder is normal.No calcified calculi. Normal bile ducts. Pancreas: The pancreas is normal. Spleen: The spleen is normal. Adrenals: The adrenals are normal. Kidneys and ureters: The kidneys are normal.No hydronephrosis. Stomach and bowel: Unremarkable. No obstruction. No mucosal thickening. Appendix: The appendix is well visualized and is normal. Intraperitoneal space: There is no free fluid or fluid collection. There is no free air. Vasculature: Unremarkable. No abdominal aortic aneurysm. Lymph nodes: There are small mesenteric lymph nodes. No grossly enlarged lymph nodes. No change from prior scan. Urinary bladder: The bladder is normal with no evidence of calculi. Reproductive: There is a 2.0 cm left ovarian cyst which was not present on the prior scan. Bones/joints: There is anterior and posterior fusion at L5-S1. Screws at S1 extends slightly beyond the anterior cortex of the sacrum. No change from prior scan. No acute fracture. Soft tissues: Unremarkable. IMPRESSION: 1. 2.0 cm left ovarian cyst, not present on prior scan. 2. No acute inflammatory findings. Electronically signed by: Uday Lynn On 11/04/2019 18:06:13 PM
[2019-11-04 18:15] VITALS: BP 127/79
--- NOTE | 2019-11-05 15:24 | ECGEPIP ---
[facility] - ED Test Date: 2019-11-04 Pat Name: CONNER LEAHY Department: Room: - Gender: Female Flight Attendant: : 1980 Requested By: NATALEE Garcia PA-C Order Number: [id number] Reading MD: Laura Iqbal Measurements Intervals [place] Rate: 74 P: 71 MI: 177 QRS: 43 QRSD: 94 T: 20 QT: 438 QTc: 486 Interpretive Statements SINUS RHYTHM WITH MARKED SINUS ARRHYTHMIA NO PRIOR Electronically Signed on 11-05-2019 15:24:18 EDT by Laura Iqbal
== END 2019-11-04 18:35 | disposition home or self-care (01) ==
LOC: M ED 12:06
DX: R11.15 Cyclical vomiting syndrome unrelated to migraine (principal); N83.202 Unspecified ovarian cyst, left side; R19.7 Diarrhea, unspecified; K27.9 Peptic ulcer, site unspecified, unspecified as acute or chronic, without hemorrhage or perforation; Z87.440 Personal history of urinary (tract) infections; Z88.1 Allergy status to other antibiotic agents; Z79.899 Other long term (current) drug therapy; Z79.2 Long term (current) use of antibiotics
CPT/HCPCS: 74177; 80048; 80076; 80307; 81001; 82550; 82553; 83605; 83690; 84484; 84702; 85025; 87040; 93005; 93041; 96361; 96372; 96374; 96375; 99285; J0500; J1630; Q9967

== ENCOUNTER → 2019-11-17 | Outpatient (REF) | payer OTHER ==
[~2019-11-17] MED LIST changes: +SULF1TAB93 PO
[2019-11-17 22:21] LABS: APPEARANCE, URINE MANUAL HAZY (CLEAR); BILIRUBIN, URINE MANUAL OBSCURED (NEGATIVE); BLOOD URINE MANUAL OBSCURED (NEGATIVE); COLOR, URINE MANUAL ORANGE (YELLOW); GLUCOSE, URINE (UA) MANUAL OBSCURED mg/dL (NEGATIVE); KETONE, URINE MANUAL OBSCURED mg/dL (NEGATIVE); LEUKOCYTE ESTERASE, URINE MAN OBSCURED (NEGATIVE); NITRITE, URINE MANUAL OBSCURED (NEGATIVE); PH,URINE MAN OBSCURED UNITS (5.0 - 7.0); PROTEIN, URINE MANUAL OBSCURED mg/dL (NEGATIVE); SPECIFIC GRAVITY,URINE MANUAL 1.033 (1.002-1.035); UROBILINOGEN, URINE MANUAL OBSCURED mg/dl (NORMAL)
[2019-11-17 22:22] LABS: URINE PREG TEST NEGATIVE (NEGATIVE)
[2019-11-17 22:33] LABS: BACTERIA, URINE MOD AMOUNT; HYALINE CAST, URINE NONE SEEN /lpf (0-1); MUCUS, URINE SMALL AMOUNT (NEGATIVE); SQUAMOUS EPITHELIAL CELL URINE LARGE AMOUNT /hpf (SMALL AMT)
== END ==
LOC: M LAB REF 22:06
PROVIDERS: ATTEND Physician Assistant Medical
DX: N39.0 Urinary tract infection, site not specified (principal)